=== PATIENT | male | born 2000 | race Caucasian/White ===

== ENCOUNTER 2022-03-08 16:24 | Emergency (ER) | payer OTHER ==
[2022-03-08] MEDS ORDERED: ACET-66 PO (19:46)
[2022-03-08] MEDS ORDERED: ACETAMINOPHEN 500 MG TABLET PO ONE (20:00)
[2022-03-08 20:03] VITALS: BP 138/74
== END 2022-03-08 20:53 | disposition home or self-care (01) ==
LOC: EDH 16:24
DX: M54.2 Cervicalgia (principal); Z88.0 Allergy status to penicillin; V49.49XA Driver injured in collision with other motor vehicles in traffic accident, initial encounter; Y93.89 Activity, other specified; Y92.89 Other specified places as the place of occurrence of the external cause; Y99.8 Other external cause status
CPT/HCPCS: 72125